=== PATIENT | female | born 1945 | race Caucasian/White ===

== ENCOUNTER → 2018-04-23 | Outpatient (CLI) | payer OTHER ==
[~2018-04-23] VITALS: Ht 162.6 cm; Wt 91.6 kg
[~2018-04-23] MED LIST: ADULT LOW DOSE81 MG PO; AMBEREN; AMOXICILLIN 50500 MG PO; APAP650 PO; AUGMENTIN 875875 MG PO; BENICAR HCT 401 EACH PO; BUTRANS1 EAC1 TD; CENTRUM SILVER1 EAC2 PO; CINNAMON; CLARITIN10 MG PO; CO Q-10100 MG PO; CRESTOR20 MG PO; CYMBALTA60 MG PO; FIBER GUMMIES1 EACH PO; FLEXERIL PO; FLUOXETINE DR90 MG PO; FOSINOPRIL SODI40 M1 PO; GLUCOSAMINE &1 EACH PO; HYDROCODON-ACE1 EAC7 PO; IBUPROFEN 200200 M1 PO; LACTONEX PO; LOPERAMIDE 2 MG2 M1 PO; MELOXICAM7.5 MG PO; NABUMETONE 750750 M1 PO; NIACIN250 M1 PO; NIACIN250 MG PO; NIFEDICAL XL30 MG PO; NIFEDIPINE ER30 M1 PO; PAROXETINE HCL40 MG PO; POTASSIUM20 PO; STIOLTO RESPIMAT4 GM INH; TOPROL XL50 MG PO; TRAMADOL 50 MG50 MG PO; TURMERIC500 MG PO; ULTRACET TABLET1 TAB PO; VITAMIN D-32000 UNIT PO; XANAX 0.5 MG0.5 MG PO; ZETIA10 MG PO; [UNRECOGNIZED DRUG - OTHER] PO
--- NOTE | ~2018-04-23 | P ---
[facility] [place] [address] PROCEDURE REPORT Name: CAITLIN LENZ Room #: [facility]#: [id number] Admission: 04/23/18 Attend Phys: Reddy Marion MD Discharge: Date of : 47 Report #: [id number] THIS REPORT FOR: //name// CC: Ernesto Lancaster FAM unknown Reddy Marion DATE OF SERVICE: 04/23/2018 BRIEF HISTORY: The patient is a 72-year-old woman who presents for high risk screening colonoscopy due to history of colon polyps. POSTOPERATIVE DIAGNOSES: 1. Unremarkable rectosigmoid surgical anastomosis. 2. Small internal hemorrhoids. MEDICATIONS: Deep sedation with propofol per Anesthesia. SPECIMEN: None. ESTIMATED BLOOD LOSS: None. PROCEDURE: Colonoscopy to cecum and terminal ileum. FINDINGS: Prior to propofol sedation, procedure of colonoscopy discussed with the patient as well as potential risks and its complications. She indicates she understands and desires to proceed. DESCRIPTION OF PROCEDURE: Placed in lateral decubitus position, digital examination was completed, which revealed no abnormalities. Subsequently, the Olympus video colonoscope was introduced into the rectum and advanced under direct vision to the cecum. Done with minimal difficulty. The cecum was identified by the ileocecal valve and the appendiceal orifice. I was able to visualize the distal segment of terminal ileum, which was inspected and noted to be unremarkable. At that point, scope was slowly withdrawn and careful circumferential views obtained including retroflexion of the scope in the ascending colon. Upon slow withdrawal of the scope, the prep was noted to be good. The mucosa was within normal limits, normal vascular pattern, normal light reflex. As we withdrew the scope, no mucosal abnormalities were seen. No neoplastic lesions were seen. The colonic mucosa was normal throughout the entire colon. The scope was withdrawn into the sigmoid colon, the surgical anastomosis with the rectum was identified and noted to be unremarkable. There was no evidence of narrowing. The scope was withdrawn into the rectum and no abnormalities were seen. Upon retroflexion, medium internal hemorrhoids were seen. There was no evidence of bleeding. Scope was withdrawn. The patient [address] [address] PROCEDURE REPORT Name: YOANNACAITLIN K [id number] Admission: 04/23/18 Attend Phys: Reddy Marion MD Discharge: Date of : 47 Report #: [id number] tolerated the procedure well. CONDITION OF THE PATIENT UPON DISCHARGE: Following the procedure the patient was drowsy, arousable, and conversant and will be discharged home when fully ambulatory. INSTRUCTIONS TO THE PATIENT AND FAMILY AT THE TIME OF DISCHARGE: No neoplastic lesions were seen on today's exam. I would suggest return in 10 years for a screening colonoscopy. I would also suggest high fiber diet and fiber supplementation. Last colonoscopy was 5 years ago. Withdrawal time from the cecum was 10 minutes 21 seconds. <ELECTRONICALLY SIGNED> By: Reddy Marion MD 04/27/18 [id number] Reddy Marion MD /nt
== END | disposition home or self-care (01) ==
LOC: GI 08:46
DX: Z12.11 Encounter for screening for malignant neoplasm of colon (principal); Z86.010 Personal history of colon polyps; Z98.0 Intestinal bypass and anastomosis status; K64.8 Other hemorrhoids; K21.9 Gastro-esophageal reflux disease without esophagitis; I10 Essential (primary) hypertension; E78.5 Hyperlipidemia, unspecified; J43.9 Emphysema, unspecified; G47.33 Obstructive sleep apnea (adult) (pediatric); F32.9 Major depressive disorder, single episode, unspecified; F41.9 Anxiety disorder, unspecified; Z85.41 Personal history of malignant neoplasm of cervix uteri; Z90.710 Acquired absence of both cervix and uterus; Z87.891 Personal history of nicotine dependence; Z90.49 Acquired absence of other specified parts of digestive tract; Z98.890 Other specified postprocedural states; Z79.899 Other long term (current) drug therapy
CPT/HCPCS: G0105; 62110; 62900